=== PATIENT | male | born 1980 | race Caucasian/White ===

== ENCOUNTER 2021-08-17 19:59 | Emergency (ER) | payer BC ==
[2021-08-17 20:09] VITALS: BP 116/64; PULSE 84; TEMP 101.2; BMI 26.4
[2021-08-17] MEDS ORDERED: IBUPROFEN 600 MG TABLET (FP) PO ONE ×2 (20:09→20:19)
== END 2021-08-17 20:31 | disposition home or self-care (01) ==
LOC: FER 19:59
DX: U07.1 COVID-19 (principal)
CPT/HCPCS: 71045-TC-FY; 99284-25